=== PATIENT | male | born 1940 | race Caucasian/White ===

== ENCOUNTER 2017-09-20 13:08 | Observation (INO) | payer MEDICARE, OTHER ==
[~2017-09-20] VITALS: Ht 177.8 cm; Wt 76.2 kg
[2017-09-20 13:53] LABS: HEMATOCRIT 52.8 % (39.2-51.8); HEMOGLOBIN 18.1 g/dL (13.7-18.0); WHITE BLOOD COUNT 9.6 x10^3/uL (3.4-10)
[2017-09-20 14:06] LABS: ASPARTATE AMINO TRANSFERASE 20 U/L (15-37); BLOOD UREA NITROGEN 13 mg/dL (7-18)
[2017-09-20] MEDS ORDERED: FUROSEMIDE 40 MG/4 ML ONE (14:06)
[2017-09-20 14:11] LABS: IS PT STATUS REG ER OR PRE ER? YES
[2017-09-20 14:23] LABS: DAU SCREEN DISCLAIMER
[2017-09-20] MEDS ORDERED: SODIUM CHLORIDE FLUSH 10ML SYR IVF ONE (14:30)
[2017-09-20] MEDS ORDERED: FUROSEMIDE 40 MG/4 ML IVPush ONE (14:30)
[2017-09-20] MEDS ORDERED: VALS1TAB24 PO (14:33)
[2017-09-20] MEDS ORDERED: ACETAMINOPHEN 325 MG TABLET PO PRN (19:00)
[2017-09-20] MEDS ORDERED: ENOXAPARIN 40 MG/0.4 ML SQ SCH (19:00)
[2017-09-20] MEDS ORDERED: ENALAPRILAT 1.25 MG/ML, 2ML IVPush PRN (19:00)
[2017-09-20] MEDS ORDERED: SIMV20TA3 PO (19:57)
[2017-09-20 19:58] VITALS: BP 121/72
[2017-09-20] MEDS ORDERED: VALSARTAN 160 MG TABLET PO SCH (21:00)
[2017-09-20] MEDS ORDERED: HYDROCHLOROTHIAZIDE 12.5 MG CAPSULE PO SCH (21:00)
[2017-09-20] MEDS ORDERED: SIMVASTATIN 20 MG TABLET PO SCH (21:00)
[2017-09-20] MEDS ORDERED: RANI150T8 PO (23:47)
[2017-09-21 00:07] VITALS: BP 144/80
[2017-09-21 06:01] LABS: HEMOGLOBIN 16.6 g/dL (13.7-18.0); WHITE BLOOD COUNT 10.5 x10^3/uL (3.4-10)
[2017-09-21 06:15] LABS: BLOOD UREA NITROGEN 16 mg/dL (7-18)
[2017-09-21 06:57] VITALS: BP 129/70
[2017-09-21] MEDS ORDERED: VALSARTAN 160 MG TABLET PO SCH (09:00)
[2017-09-21] MEDS ORDERED: HYDROCHLOROTHIAZIDE 12.5 MG CAPSULE PO SCH (09:00)
[2017-09-21 14:53] VITALS: BP 131/75
[2017-09-21] MEDS ORDERED: FLU VACC QS2017-18 (36MOS+) UP/PF 0.5 ML IM-VACC ONE (18:00)
[2017-09-21] MEDS ORDERED: ACETAMINOPHEN 325 MG TABLET PO PRN (18:30)
[2017-09-21] MEDS ORDERED: ENALAPRILAT 1.25 MG/ML, 2ML IVPush PRN (18:30)
== END 2017-09-21 18:41 | disposition home or self-care (01) ==
LOC: ED 17:23 → EDIP 17:24 → INTOOBSV 17:24 → ED 17:47 → 3NE 18:34 → 4EST 19:40
PROVIDERS: ADMIT Hospitalist; ATTEND Hospitalist
DX: R41.3 Other amnesia (principal); I10 Essential (primary) hypertension; E78.5 Hyperlipidemia, unspecified; R41.82 Altered mental status, unspecified; R41.0 Disorientation, unspecified; F12.90 Cannabis use, unspecified, uncomplicated; F17.200 Nicotine dependence, unspecified, uncomplicated; Z82.49 Family history of ischemic heart disease and other diseases of the circulatory system; Z23 Encounter for immunization
CPT/HCPCS: 36415; 70450; 70551; 71010; 80048; 80053; 80307; 81003; 84439; 84443; 84484; 85025; 90471; 90686; 93005; 93306; 93880; 96372; 99285; G0378; J1650; G0479